=== PATIENT | female | born 1990 | race African-American/Black ===

== ENCOUNTER 2022-03-23 16:31 | Emergency (ER) | payer OTHER, SELFPAY ==
[2022-03-23 16:32] VITALS: BP 128/79; PULSE 78; RESP 18; TEMP 36.2; O2SAT 100; BMI 30.2
--- NOTE | 2022-03-23 16:32 | ED_ITS ---
HPI - Extremity Injury (Upper) General Chief Complaint: General Medical <ASHU Sandhu - Last Filed: 03/23/22 16:39> Stated Complaint: Electrocuted hand <ASHU Sandhu - Last Filed: 03/23/22 16:39> Time Seen by Provider: 03/23/22 17:17 <ASHU Sandhu - Last Filed: 03/23/22 16:39> Source: patient <Myesha Rendon MD - Last Filed: 03/23/22 17:53> Mode of arrival: ambulatory <Myesha Rendon MD - Last Filed: 03/23/22 17:53> Limitations: no limitations <Myesha Rendon MD - Last Filed: 03/23/22 17:53> History of Present Illness HPI narrative: Patient comes to the emergency room after sustaining an electrical shock to the left hand. 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 Patient did not lose consciousness, denies chest pain or shortness of breath. Patient complaining of localized pain in the left hand. Patient states that she has no loss of function or sensation. No burn branch. <Myesha Rendon MD - Last Filed: 03/23/22 17:53> Related Data Allergies/Adverse Reactions: Allergies Allergy/AdvReac Type Severity Reaction Status Date / Time amoxicillin [From Augmentin] Allergy Unknown Unknown Unverified 03/23/22 17:51 clavulanic acid Allergy Unknown Unknown Unverified 03/23/22 17:51 [From Augmentin] <ASHU Sandhu - Last Filed: 03/23/22 16:39> Review of Systems Review of Systems: Constitutional : No Weight loss, No Fever, No Chills, No Night Sweats, No Fatigue, No Malaise ENT/Mouth : No Hearing loss, No Ear Pain, No Nasal Congestion, No Sinus Pain, No Hoarseness, No sore throat, No Rhinorrhea, No Swallowing Difficulty Eyes: No Eye Pain, No Swelling, No Redness, No Foreign Body, No Discharge, No Vision Changes Cardiovascular : No Chest Pain, No SOB, No Dyspnea on Exertion, No Orthopnea, No Edema, No Palpitations Respiratory : No Cough, No Sputum, No Wheezing, No Smoke Exposure, No Dyspnea Gastrointestinal : No Nausea, No Vomiting, No Diarrhea, No Constipation, No abdominal Pain, No Hematochezia, No Melena Genitourinary : no irregular bleeding, No Dysuria, No Urinary Frequency, No Hematuria, No Urinary Incontinence, No Urgency, No Flank Pain, No Urinary Flow Changes, No Hesitancy Musculoskeletal : No joint pain, No Myalgias, No Joint Swelling, mild pain to the left hand Skin : No Skin Lesions, No rash Neuro : No Weakness, No Numbness, No Paresthesias, No Loss of Consciousness, No Dizziness, No Headache Psych : No Anxiety/Panic, No Depression, No SI/HI/AH/VH, No Social Issues, Heme/Lymph: No Bruising, No Bleeding,No Lymphadenopathy Endocrine : No Polyuria, No Polydipsia, No Temperature Intolerance <Myesha Rendon MD - Last Filed: 03/23/22 17:53> [facility] Social History Social History: Social History Advance Directives: No Advance Directives Information Provided: No <ASHU Sandhu - Last Filed: 03/23/22 16:39> Physical Exam Vital Signs: Vital Signs: Last Vital Signs Temp 97.2 F 03/23/22 16:32 Pulse 78 03/23/22 16:32 Resp 18 03/23/22 16:32 BP 128/79 03/23/22 16:32 Pulse Ox 100 03/23/22 16:32 O2 Del Method 03/23/22 16:32 BMI result Body Mass Index 30.2 <ASHU Sandhu - Last Filed: 03/23/22 16:39> Vital Signs: Last Vital Signs Temp 97.2 F 03/23/22 16:32 Pulse 78 03/23/22 16:32 Resp 18 03/23/22 16:32 BP 128/79 03/23/22 16:32 Pulse Ox 100 03/23/22 16:32 O2 Del Method 03/23/22 16:32 BMI result Body Mass Index 30.2 <Myesha Rendon MD - Last Filed: 03/23/22 17:53> Const: Other: Appearance: Alert. Oriented X3. No acute distress. Eyes: Pupils equal, round and reactive to light. ENT: Pharynx normal. Neck: Normal inspection. Neck supple. No lymph nodes noted. No crepitus CVS: Normal heart rate and rhythm. Pulses normal. Normal S1 and S2 Respiratory: No respiratory distress. Breath sounds normal. No Wheezing. No rales Abdomen: Soft and nontender. No rigidity. No distention. Skin: Skin warm and dry. Normal skin color. Normal skin turgor. Patient has no ulcers or entry or exit wounds. No burn branch Extremities: No lower extremity edema. No Lacerations. No Rash, patient able to flex and extend all extremities within normal limits. Patient's hand motor function on the left hand within normal limits Neuro: Oriented X 3. No motor deficit. No sensory deficit. Moving all extremities. No slurred speech. CN 2 through 12 grossly intact Psych: calm, cooperative, normal affect <Myesha Rendon MD - Last Filed: 03/23/22 17:53> Course Course Course Narrative: RME--31yo F w/no sig PMHx presenting to the ED c/o Lelf hand pain, burning, and parathesias s/p wall outlet exploding & electricuting hand at work [employer]. L hand with noted charring/black and burn branch EKG & labs ordered in triage <ASHU Sandhu - Last Filed: 03/23/22 16:39> Medical Decision Making Medical Decision Making MDM Narrative: -patient's CPK very mildly elevated, normal renal function, troponin normal, EKG normal. <Myesha Rendon MD - Last Filed: 03/23/22 17:53> Lab Data Result Diagrams: 03/23/22 16:54 03/23/22 16:54 <ASHU Sandhu - Last Filed: 03/23/22 16:39> Labs: Lab Results 03/23/22 03/23/22 03/23/22 Range/Units 16:54 16:54 16:54 WBC 5.0 (4.8-10.8) X10*3/uL RBC 3.89 L (4.20-5.50) X10*6/uL Hgb 11.5 L (12.0-16.0) g/dl Hct 35.4 L (37.0-47.0) % MCV 91.0 (80.0-98.0) fL MCH 29.6 (27.0-33.0) pg MCHC 32.5 (31.0-35.0) g/dl RDW 12.7 (11.0-16.0) % Plt Count 272 (160-400) X10*3/uL MPV 9.1 L (9.4-12.3) fL Immature Gran % (Auto) 0.2 (0.0-0.4) % Neut % (Auto) 57.2 (45-73) % Lymph % (Auto) 33.5 (20-40) % Stevens % (Auto) 7.1 (2-11) % Eos % (Auto) 1.6 (0-4) % Baso % (Auto) 0.4 (0-2) % Lymph # (Auto) 1.7 (1.2-4.9) X10*3/uL Stevens # (Auto) 0.4 (0.1-1.2) X10*3/uL Eos # (Auto) 0.1 (0.0-0.4) X10*3/uL Baso # (Auto) 0.0 (0.0-0.2) X10*3/uL Abs Immat Gran (auto) 0.01 (0.00-0.03) X10*3/uL Absolute Neuts (auto) 2.9 (2.0-8.3) x10*3/uL Absolute Nucleated RBC 0.000 (0.0-0.012) X10*3/uL Nucleated RBC % (auto) 0.0 (0.0-0.2) /100WBC Sodium 141 (135-145) mmol/L Potassium 3.9 (3.3-5.1) mmol/L Chloride 108 (96-108) mmol/L Carbon Dioxide 24 (22-29) mmol/L Anion Gap 13 (12-20) BUN 11 (9-16) mg/dL Creatinine 1.02 (0.5-1.4) mg/dL Estim Creat Clear Calc 83.2 Estimated GFR > 60 Random Glucose 81 (60-115) mg/dL Calcium 9.2 (8.4-10.2) mg/dL Magnesium 2.0 (1.6-2.6) mg/dL Total Bilirubin 0.4 (0.0-1.0) mg/dL Direct Bilirubin 0.2 (0.0-0.5) mg/dL AST 17 (5-31) U/L ALT 11 (0-31) U/L Alkaline Phosphatase 75 (39-117) U/L Total Creatine Kinase 229 H (26-140) U/L Troponin I High Sens < 3.5 (<3.5-17.0) ng/L Total Protein 6.8 (6.5-8.0) g/dL Albumin 4.1 (3.5-5.0) g/dL <ASHU Sandhu - Last Filed: 03/23/22 16:39> Lab Results 03/23/22 03/23/22 03/23/22 Range/Units 16:54 16:54 16:54 WBC 5.0 (4.8-10.8) X10*3/uL RBC 3.89 L (4.20-5.50) X10*6/uL Hgb 11.5 L (12.0-16.0) g/dl Hct 35.4 L (37.0-47.0) % MCV 91.0 (80.0-98.0) fL MCH 29.6 (27.0-33.0) pg MCHC 32.5 (31.0-35.0) g/dl RDW 12.7 (11.0-16.0) % Plt Count 272 (160-400) X10*3/uL MPV 9.1 L (9.4-12.3) fL Immature Gran % (Auto) 0.2 (0.0-0.4) % Neut % (Auto) 57.2 (45-73) % Lymph % (Auto) 33.5 (20-40) % Stevens % (Auto) 7.1 (2-11) % Eos % (Auto) 1.6 (0-4) % Baso % (Auto) 0.4 (0-2) % Lymph # (Auto) 1.7 (1.2-4.9) X10*3/uL Stevens # (Auto) 0.4 (0.1-1.2) X10*3/uL Eos # (Auto) 0.1 (0.0-0.4) X10*3/uL Baso # (Auto) 0.0 (0.0-0.2) X10*3/uL Abs Immat Gran (auto) 0.01 (0.00-0.03) X10*3/uL Absolute Neuts (auto) 2.9 (2.0-8.3) x10*3/uL Absolute Nucleated RBC 0.000 (0.0-0.012) X10*3/uL Nucleated RBC % (auto) 0.0 (0.0-0.2) /100WBC Sodium 141 (135-145) mmol/L Potassium 3.9 (3.3-5.1) mmol/L Chloride 108 (96-108) mmol/L Carbon Dioxide 24 (22-29) mmol/L Anion Gap 13 (12-20) BUN 11 (9-16) mg/dL Creatinine 1.02 (0.5-1.4) mg/dL Estim Creat Clear Calc 83.2 Estimated GFR > 60 Random Glucose 81 (60-115) mg/dL Calcium 9.2 (8.4-10.2) mg/dL Magnesium 2.0 (1.6-2.6) mg/dL Total Bilirubin 0.4 (0.0-1.0) mg/dL Direct Bilirubin 0.2 (0.0-0.5) mg/dL AST 17 (5-31) U/L ALT 11 (0-31) U/L Alkaline Phosphatase 75 (39-117) U/L Total Creatine Kinase 229 H (26-140) U/L Troponin I High Sens < 3.5 (<3.5-17.0) ng/L Total Protein 6.8 (6.5-8.0) g/dL Albumin 4.1 (3.5-5.0) g/dL <Myesha Rendon MD - Last Filed: 03/23/22 17:53> Discharge Plan Discharge Clinical Impression: Electric shock <ASHU Sandhu - Last Filed: 03/23/22 16:39> Patient Disposition: Home, Self-Care <ASHU Sandhu - Last Filed: 03/23/22 16:39> Instructions: Electrical Charles in Adults (ED) <ASHU Sandhu - Last Filed: 03/23/22 16:39> Additional Instructions: Please follow-up with your primary care physician tomorrow. If you have any worsening or new symptoms, please return to the emergency room or call 911 <ASHU Sandhu - Last Filed: 03/23/22 16:39> Stand Alone Forms: Work/School Release <ASHU Sandhu - Last Filed: 03/23/22 16:39>
--- NOTE | 2022-03-23 16:34 | ECG_ITS ---
Test Reason : ELECTRIC SHOCK Blood Pressure : / mmHG Vent. Rate : 068 BPM Atrial Rate : 068 BPM P-R Int : 194 ms QRS Dur : 106 ms QT Int : 372 ms P-R-T Axes : 056 029 049 degrees QTc Int : 395 ms Normal sinus rhythm Normal ECG No previous ECGs available Referred By: Marybeth Garcia Electronically Signed By:Nabor Olmedo
[2022-03-23 16:59] LABS: MANUAL DIFF FLAG NO
[2022-03-23 17:04] LABS: Basophils Percent Auto 0.4 % (0-2); Eosinophils Absolute Auto 0.1 X10*3/uL (0.0-0.4); Eosinophils Percent Auto 1.6 % (0-4); Hematocrit 35.4 % (37.0-47.0); Hemoglobin 11.5 g/dl (12.0-16.0); Imm Gran Abs Auto 0.01 X10*3/uL (0.00-0.03); Imm Gran Pct Auto 0.2 % (0.0-0.4); Lymphocytes Absolute Auto 1.7 X10*3/uL (1.2-4.9); Lymphocytes Percent Auto 33.5 % (20-40); Mean Corpuscular HGB Conc 32.5 g/dl (31.0-35.0); Mean Corpuscular Hemoglobin 29.6 pg (27.0-33.0); Mean Platelet Volume 9.1 fL (9.4-12.3); Monocytes Absolute Auto 0.4 X10*3/uL (0.1-1.2); Monocytes Percent Auto 7.1 % (2-11); Neutrophils Absolute Auto 2.9 x10*3/uL (2.0-8.3); Neutrophils Percent Auto 57.2 % (45-73); Platelet Count 272 X10*3/uL (160-400); Red Blood Count 3.89 X10*6/uL (4.20-5.50); Red Cell Distribution Width 12.7 % (11.0-16.0)
[2022-03-23 17:16] LABS: Alanine Aminotransferase 11 U/L (0-31); Albumin Level 4.1 g/dL (3.5-5.0); Alkaline Phosphatase 75 U/L (39-117); Anion Gap 13 (12-20); Aspartate Amino Transferase 17 U/L (5-31); Bilirubin Direct 0.2 mg/dL (0.0-0.5); Bilirubin Total 0.4 mg/dL (0.0-1.0); Blood Urea Nitrogen 11 mg/dL (9-16); Calcium 9.2 mg/dL (8.4-10.2); Carbon Dioxide 24 mmol/L (22-29); Chloride 108 mmol/L (96-108); Creatinine Clr Calc Pharmacy 83.2; Estimated Glomerular Filt Rate > 60; Glucose Random 81 mg/dL (60-115); Potassium 3.9 mmol/L (3.3-5.1); Sodium 141 mmol/L (135-145); Total Protein 6.8 g/dL (6.5-8.0)
[2022-03-23 17:24] LABS: Troponin-I High Sensitivity < 3.5 ng/L (<3.5-17.0)
[2022-03-23] MEDS: Ibuprofen 600 MG TABLET PO (18:00)
== END 2022-03-23 18:05 | disposition home or self-care (01) ==
PROVIDERS: Physician Assistant; Emergency Provider Emergency Medicine
DX: T23.002A Burn of unspecified degree of left hand, unspecified site, initial encounter (principal); W86.1XXA Exposure to industrial wiring, appliances and electrical machinery, initial encounter; M79.642 Pain in left hand; Y93.89 Activity, other specified; Y92.128 Other place in nursing home as the place of occurrence of the external cause; Y99.0 Civilian activity done for income or pay
CPT/HCPCS: 36415; 80048; 80076; 82550; 83735; 84484; 85025; 93005; 99283